=== PATIENT | male | born 1960 | race Caucasian/White ===

== ENCOUNTER 2019-08-29 13:31 | Emergency (ER) | payer BC ==
[~2019-08-29] VITALS: Ht 182.9 cm; Wt 124.7 kg
[2019-08-29 13:38] VITALS: TEMP 97.8
[2019-08-29 14:13] LABS: BASO # 0.1 (0.0-0.2); BASO % 1.2 % (0.0-2.0); EOS # 0.7 (0.0-0.7); EOS % 8.7 % (0-4.0); GRAN % 60.1 % (42.2-75.2); HEMATOCRIT 43.4 % (42.0-52.0); HEMOGLOBIN 14.4 g/dl (13.5-18.0); LYMPH # 1.7 (1.2-3.4); LYMPH % 20.2 % (20.0-51.0); MEAN CELL VOLUME 89 fl (80.0-100.0); MEAN CORPUSCULAR HEMOGLOBIN 29 pg (27.0-31.0); MEAN CORPUSCULAR HGB CONC 33 g/dl (33.0-37.0); MONO # 0.8 (0.1-0.6); MONO % 9.6 % (1.7-9.3); PLATELET COUNT 193 K/mm3 (130-400); RED BLOOD COUNT 4.89 M/mm3 (4.20-5.60); REDCELL DISTRIBUTION WIDTH-CV 12.6 % (11.5-14.5)
[2019-08-29 14:28] LABS: ALANINE AMINOTRANSFERASE 19 U/L (21-72); ALBUMIN 4.7 gm/dL (3.5-5.0); ALKALINE PHOSPHATASE 58 U/L (50-136); ANION GAP 11 mmol/L (7-16); AST,SGOT 22 U/L (15-37); BILIRUBIN,TOTAL 0.7 mg/dL (0.0-1.0); BLOOD UREA NITROGEN 16 mg/dL (9-20); CALCIUM 9.5 mg/dL (8.4-10.2); CARBON DIOXIDE 22 mmol/L (22-30); CHLORIDE 108 mmol/L (98-107); CREATININE, serum 0.69 (0.66-1.25); GLUCOSE 108 mg/dL (74-106); SODIUM 140 mmol/L (137-145); TOTAL PROTEIN 7.7 gm/dL (6.4-8.2)
[2019-08-29 14:41] LABS: PROTHROMBIN TIME 11.1 SECONDS (9.7-12.8)
[2019-08-29 14:44] LABS: PARTIAL THROMBOPLASTIN TIME 30.7 SECONDS (26.0-37.0)
[2019-08-29 14:56] LABS: TROPONIN-I < 0.012 ng/mL (0.000-0.035)
[2019-08-29] MEDS ORDERED: GLUCOPHAGE500 MG/TAB PO (15:05)
[2019-08-29] MEDS ORDERED: LOPID 600M600 MG/TAB PO (15:05)
[2019-08-29] MEDS ORDERED: AVAPRO TAB150 MG/TAB PO (15:06)
[2019-08-29] MEDS ORDERED: ASPIRIN 81M81 MG/TA2 PO (15:11)
[2019-08-29] MEDS ORDERED: PRAVACHOL80 MG PO (15:11)
[2019-08-29] MEDS ORDERED: DIABETA 5MG5 MG/TAB PO (15:12)
[2019-08-29 17:36] VITALS: BP 138/78; PULSE 56
== END 2019-08-29 17:30 | disposition home or self-care (01) ==
LOC: COL.ER 13:31
PROVIDERS: Family Medicine
DX: I49.3 Ventricular premature depolarization (principal); R42 Dizziness and giddiness; Z79.84 Long term (current) use of oral hypoglycemic drugs; Z79.82 Long term (current) use of aspirin
CPT/HCPCS: J7030